=== PATIENT | female | born 1970 | race Caucasian/White ===

== ENCOUNTER 2017-06-26 05:10 | Inpatient (IN) ==
[2017-06-19 17:12] LABS: ALT/SGPT 17 U/l (0-40); Albumin 4.7 gm/dL (3.2-5.2); Albumin/Globulin Ratio 1.4 (1.0-2.3); Alkaline Phosphatase 110 U/L (39-117); Blood Urea Nitrogen 10 mg/dl (6-20)
[2017-06-19 17:17] LABS: Basophils # (Auto) 0.1 K/mcL (0.0-0.3); Basophils % (Auto) 0.6 % (0.0-2.0); Eosinophils # (Auto) 0.3 K/mcL (0.0-0.7); Eosinophils % (Auto) 3.5 % (0.0-7.0); Granulocytes % (Auto) 53.5 % (38.0-78.0); Lymphocytes # (Auto) 3.3 K/mcL (1.5-4.8); Lymphocytes % (Auto) 36.8 % (15.5-49.0); Mean Cell Volume 88.7 fL (80.0-100.0); Mean Corpuscular HGB Conc 34.9 g/dL (31.0-36.0); Monocytes # (Auto) 0.5 K/mcL (0.1-0.9); Monocytes % (Auto) 5.6 % (1.0-12.0); Platelet Count 340 K/mcL (140-440); RBC 4.42 M/mcL (4.00-5.20); Red Cell Distribution Width 12.1 % (11.5-14.5)
[2017-06-19 17:22] LABS: HCG,Serum NEGATIVE <10 (<10 mIU/ml)
[2017-06-19 17:51] LABS: Appearance,Urine CLEAR; Bilirubin,Urine NEG (NEG); Color,Urine STRAW; Glucose,Urine (UA) NEGATIVE (NEG); Leukocyte Esterase,Urine NEG /uL (NEG); Nitrate,Urine NEG (NEG); Protein,Urine NEG (NEG); Specific Gravity,Urine 1.006 (1.000-1.035); Urine Blood NEG mg/dL (<0.03); Urobilinogen,Urine NEG (NEG)
[2017-06-26] MEDS ORDERED: VANCOMYCIN 1,000 MG in 0.9 % SODIUM CHLORIDE 250 ML IV SCH (07:00)
[2017-06-26] MEDS ORDERED: ceFAZolin 1 GM VIAL IV SCH (07:45)
[2017-06-26] MEDS ORDERED: SUCCINYLCHOLINE 20 MG/ML ML IV ONE (07:50)
[2017-06-26] MEDS ORDERED: MIDAZOLAM 2 MG/2 ML VIAL IV ONE (07:50)
[2017-06-26] MEDS ORDERED: PROPOFOL 200 MG/20 ML VIAL IV ONE (07:50)
[2017-06-26] MEDS ORDERED: DEXAMETHASONE 10 MG/ML VIAL IV ONE (07:50)
[2017-06-26] MEDS ORDERED: ONDANSETRON 4 MG/2 ML VIAL IV ONE (07:50)
[2017-06-26] MEDS ORDERED: hydrALAZINE 20 MG/ML VIAL IV ONE (07:50)
[2017-06-26] MEDS ORDERED: HYDROmorphone 2 MG/ML SYRINGE IV ONE (07:50)
[2017-06-26] MEDS ORDERED: LIDOCAINE HCL/PF 100 MG/5 ML SYRINGE IV ONE (07:50)
[2017-06-26] MEDS ORDERED: fentaNYL 250 MCG/5 ML VIAL IV ONE (07:50)
[2017-06-26] MEDS ORDERED: KETAMINE 100 MG/ML ML IV ONE (07:50)
[2017-06-26] MEDS ORDERED: GELATIN SPONGE,ABSORBABLE 1 EACH SPONGE TOPICAL ONE (08:47)
[2017-06-26] MEDS ORDERED: GELATIN SPONGE,ABSORBABLE 1 GM POWDER TOPICAL ONE (08:47)
[2017-06-26] MEDS ORDERED: THROMBIN (BOVINE) 5,000 UNIT VIAL TOPICAL ONE (09:21)
[2017-06-26] MEDS ORDERED: IPRATROPIUM/ALBUTEROL 3 ML AMPUL.NEB NEB PRN (11:42)
[2017-06-26] MEDS ORDERED: METHOCARBAMOL 1,000 MG/10 ML VIAL IV PRN (11:42)
[2017-06-26] MEDS ORDERED: ePHEDrine 50 MG/ML AMPUL IV PRN (11:42)
[2017-06-26] MEDS ORDERED: FLUMAZENIL 0.1 MG/ML ML IV PRN (11:42)
[2017-06-26] MEDS ORDERED: LACTATED RINGERS 250 ML IV PRN (11:42)
[2017-06-26] MEDS ORDERED: MEPERIDINE 50 MG/ML SYRINGE IM PRN (11:42)
[2017-06-26] MEDS ORDERED: BENZOCAINE/MENTHOL 1 LOZENGE PO PRN ×2 (11:42→12:39)
[2017-06-26] MEDS ORDERED: NALOXONE HCL 0.4 MG/ML VIAL IV PRN (11:42)
[2017-06-26] MEDS ORDERED: PROMETHAZINE 25 MG/ML VIAL IV PRN (11:42)
[2017-06-26] MEDS ORDERED: ONDANSETRON 4 MG/2 ML VIAL IV PRN (11:42)
[2017-06-26] MEDS ORDERED: PROMETHAZINE 25 MG/ML VIAL IM PRN (11:42)
[2017-06-26] MEDS ORDERED: diphenhydrAMINE 50 MG/ML VIAL IV PRN (11:42)
[2017-06-26] MEDS ORDERED: LACTATED RINGERS 1,000 ML IV SCH (11:45)
[2017-06-26] MEDS ORDERED: ACETAMINOPHEN 1,000 MG/100 ML BOTTLE IV SCH (12:00)
[2017-06-26] MEDS ORDERED: BUPIVACAINE 0.25% 50 ML VIAL IJ ONE (12:36)
[2017-06-26] MEDS ORDERED: GUM MASTIC/STORAX/MSAL/ALCOHOL 1 DOSE DROPERETTE TOPICAL ONE (12:36)
[2017-06-26] MEDS ORDERED: ONDANSETRON ODT 4 MG TABLET SL PRN (12:39)
--- NOTE | 2017-06-26 12:39 | Brief Operative Note ---
Date of procedure: 06/26/17 Pre-op diagnosis: isthmic spondylolisthesis Post-op diagnosis: same Procedure: decompression and fusion Grafts/Implants: Yes (nuvasive) Anesthesia: GETA Findings: decompressed roots Complications: none Surgeon: Jung Interiano Inner Tube Tuber Machine Operator: Charu Rosa Estimated blood loss (cc): 150 Specimens Removed/Pathology: none sent Condition: stable Disposition: PACU
[2017-06-26] MEDS ORDERED: HYDROmorphone PCA 30 MG/30 ML PCA.VIAL IV PRN (12:47)
[2017-06-26] MEDS: fentaNYL 100 MCG/2 ML VIAL IV PRN ×4 (13:03→13:45)
[2017-06-26] MEDS: MEPERIDINE 25 MG/ML SYRINGE IV PRN ×2 (13:29→13:30)
[2017-06-26] MEDS: HYDROmorphone 2 MG/ML SYRINGE IV PRN ×4 (14:00→14:15)
[2017-06-26] MEDS: 0.9 % SODIUM CHLORIDE 1,000 ML IV SCH ×2 (14:37→23:36)
[2017-06-26] MEDS: ceFAZolin 1 GM VIAL IV SCH ×2 (15:26→23:35)
[2017-06-26] MEDS: METHOCARBAMOL 500 MG TABLET PO PRN (16:18)
[2017-06-26] MEDS: DOCUSATE SODIUM 100 MG CAPSULE PO SCH (21:17)
[2017-06-26] MEDS: traMADol 50 MG TABLET PO PRN (23:54)
[2017-06-27 07:19] LABS: Blood Urea Nitrogen 8 mg/dl (6-20)
[2017-06-27] MEDS: METHOCARBAMOL 500 MG TABLET PO PRN (07:20)
--- NOTE | 2017-06-27 07:52 | Orthopedic Progress Note ---
Subjective Patient information: Note initiated : 06/27/17 at 7:50 am Service Date, if different from initiated Date: [] Patient: Natalie Rich 46 y/o F admitted on 06/26/17 for L4-S1 Lumbar Decompression with Fusion. Chief Complaint: [S/P L5-S1 decompression and fusion] Patient is doing well and states her lower extremity symptoms are improved compared to pre-operatively. Denies any lower extremity weakness/paresthesias. Objective Vital signs: Vital Signs Temp Pulse Resp BP Pulse Ox 06/27/17 07:32 97.1 F 16 111/70 93 06/27/17 04:28 98.5 F 81 16 114/57 92 06/27/17 03:46 18 06/26/17 23:59 97.6 F 82 16 134/72 94 06/26/17 20:00 97.8 F 84 16 123/75 92 06/26/17 18:30 17 06/26/17 16:05 97.9 F 18 135/82 97 06/26/17 15:50 134/68 95 06/26/17 15:35 125/68 94 06/26/17 15:20 97 F 18 138/72 95 06/26/17 14:37 16 06/26/17 14:04 98.3 F 92 H 18 139/84 96 06/26/17 13:40 90 15 139/67 100 06/26/17 13:25 95 H 15 157/74 100 06/26/17 13:10 101 H 21 125/97 100 06/26/17 12:53 98.1 F 77 11 L 112/58 100 Intake and Output 06/26/17 06/27/17 06/27/17 21:59 05:59 13:59 Intake Total 1750 / 1750 1498 / 1498 Output Total 666 / 666 1550 / 1550 Balance 1084 / 1084 -52 / -52 Intake: IV 898 / 898 Sodium Chloride 0.9% 1,000 ml @ 898 / 898 100 mls/hr IV .Q10H AZIZA Rx#: [id number] Oral 1750 / 1750 600 / 600 Output: Drainage 176 / 176 75 / 75 Right ELIZABETH Drain 176 / 176 75 / 75 Void Amount 490 / 490 1475 / 1475 Other: # Voids 1 1 Weight 238 lb 12.8 oz Intake & Output: Intake & Output 06/26/17 06/27/17 06/27/17 21:59 05:59 13:59 Intake Total 1750 / 1750 1498 / 1498 Output Total 666 / 666 1550 / 1550 Balance 1084 / 1084 -52 / -52 Weight 238 lb 12.8 oz Intake: IV 898 / 898 Sodium Chloride 0.9% 1,000 ml @ 898 / 898 100 mls/hr IV .Q10H AZIZA Rx#: [id number] Oral 1750 / 1750 600 / 600 Output: Drainage 176 / 176 75 / 75 Right ELIZABETH Drain 176 / 176 75 / 75 Void Amount 490 / 490 1475 / 1475 Other: # Voids 1 1 Incision: Yes clean and dry Incision clean and dry: Yes Dressing: Yes clean, Yes dry, Yes intact Weight bearing status: as tolerated Neurological exam IM: Yes alert, Yes oriented X3, Yes motor sensory intact, Yes neurovascular intact Extremities exam IM: Yes Foot pink and warm, Yes neurovascular intact - Labs CBC & BMP: 06/27/17 05:26 06/27/17 05:26 Labs: Orthopedic Labs 06/19/17 16:16 PT 13.1 INR 1.0 06/27/17 06/19/17 05:26 16:16 Hgb 10.6 L 13.7 Hct 31.1 L 39.2 Assessment and Plan (1) Lumbar spinal stenosis 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 Have SPORT PT fit patient for aspen Quickdraw lumbar brace. Ambulate with PT. Limit bending, lifting, and twisting. Likely discharge to home tomorrow if pain is well- controlled and she is ambulating well. Status: Acute
--- NOTE | 2017-06-27 08:38 | Operative Note ---
DATE OF OPERATION: 06/26/2017 PREOPERATIVE DIAGNOSIS: Isthmic spondylolisthesis L5-S1 with high-grade foraminal narrowing and radicular pain. POSTOPERATIVE DIAGNOSIS: Isthmic spondylolisthesis L5-S1 with high-grade foraminal narrowing and radicular pain. OPERATION PROPOSED: 1. Lumbar decompression via Adams laminectomy, posterior nonsegmental instrumentation with posterior/posterolateral fusion L5-S1. 2. Application of prosthetic device interbody space and interbody fusion L5-S1. 3. Aspiration of right iliac crest for osteoprogenitor cells. OPERATION PERFORMED: 1. Lumbar decompression via Adams laminectomy, posterior nonsegmental instrumentation with posterior/posterolateral fusion L5-S1. 2. Application of prosthetic device interbody space and interbody fusion L5-S1. 3. Aspiration of right iliac crest for osteoprogenitor cells. OPERATING SURGEON: Jung Interiano MD PAYABLE MANAGER: Charu Rosa PA-C ESTIMATED BLOOD LOSS: 150 mL COMPLICATIONS: None. INDICATIONS: This is a lady with isthmic spondylolisthesis. She has had ongoing back pain and radiculopathy. She has failed conservative measures. We have elected to proceed with lumbar decompression and fusion. OPERATION IN DETAIL: Informed consent was obtained. She was taken to the operating where she was provided with appropriate anesthetic and prophylactic antibiotics. She was carefully positioned. Her back was prepped sterilely. A midline incision was made. I dissected down to expose spinous process and lamina at L5-S1. I dissected out and around the facet joints and exposed the transverse process at L5 and the sacral ala. I then placed a marker and radiograph was obtained to confirm the level of dissection. The laminectomy was done by elevating the spinous process lamina and the inferior articular process of L5. This was elevated through the pars defect. I then debrided osteophytic material off of the L5 pedicle and the remnants of the pars defect. I followed the exiting nerve root to ensure that it was very adequately decompressed. Additional decompression was done as we distracted across the disc space and performed a moderate reduction. I then placed the posterior instrumentation, this being a pedicle screw construct. I identified the appropriate starting position. I passed a gearshift awl cannulating the pedicle. Each pedicle was then probed with a ball-tip whip and then tapped. I reprobed and placed appropriate length pedicle screw at L5 and S1, both on the right and on the left. Radiographs were obtained to confirm the position of the hardware. I then aspirated the iliac crest for osteoprogenitor cells. This was done by advancing a needle into the right iliac crest. The aspirate was applied to our locally harvested bone graft which had been morcellized via bone mill. I then performed the application of prosthetic device interbody space and interbody fusion. This was done by mobilizing the nerve root toward the midline. I incised the annulus. I brought in a variety of dilators and by turning these dilators I was able to distract across the disc space. Distraction was held with a working chari. I then extensively curetted the disc space debriding down to subchondral bone. I packed morcellized bone graft into the disc space to allow for fusion. This was followed by a cage also from Open-Plug which was filled with morcellized bone graft and impacted into the site prepared for it. Posterior and posterolateral fusion was then performed. I extensively decorticated posterolateral aspect of the spine. I packed morcellized bone graft into and against the decorticated posterolateral aspect of the spine to allow perfusion. The procedure was completed by compressing across the interbody graft. I tightened and torqued the chari into the top-loading pedicle screws. I had irrigated thoroughly with pulsatile lavage and IrriSept prior to placing bone graft, closed over a deep drain with 0 Vicryl in interrupted fashion, 2-0 Vicryl inverted deep dermal, and running subcuticular. The procedure was tolerated well. No complications. Estimated blood loss was 150 mL. GDD:vanessa Job ID: [id number] Doc ID: [id number] Jung Interiano MD
[2017-06-27] MEDS: HYDROcodone/APAP 10/325MG TABLET PO PRN ×2 (09:22→20:02)
[2017-06-27] MEDS: DOCUSATE SODIUM 100 MG CAPSULE PO SCH ×2 (09:23→21:56)
[2017-06-27] MEDS: 0.9 % SODIUM CHLORIDE 1,000 ML IV SCH ×2 (09:27→20:05)
[2017-06-27] MEDS ORDERED: FLU VACC QS2017-18 36MOS UP/PF 60 MCG/0.5 ML SYRINGE IM ONE (10:00)
[2017-06-27] MEDS ORDERED: ACETAMINOPHEN 1,000 MG/100 ML BOTTLE IV PRN (14:07)
[2017-06-27] MEDS ORDERED: DIAZEPAM 10 MG/2 ML SYRINGE IV PRN (15:17)
--- NOTE | 2017-06-27 15:26 | General Surgery Progress Note ---
Subjective Patient reports: other (OCASIO) Narrative: Note initiated : 06/27/17 at 3:24 pm Service Date, if different from initiated Date: [] Patient: Natalie Rich 46 y/o F admitted on 06/26/17 for L4-S1 Lumbar Decompression with Fusion. Chief Complaint: [OCASIO] called to eval OCASIO, possible position component POD#1 lumbar decomp franklin and fusion spoke with sx, doubt csf etiology occupational health professional eval earlier, ordered iv ofirmev, going in now, no sx relief no neuro sxs, anxiety episode earlier, resolved spont w reassurance Objective Temp Pulse Resp BP Pulse Ox 97.4 F 81 16 109/65 94 06/27/17 12:06 06/27/17 04:28 06/27/17 09:30 06/27/17 12:06 06/27/17 12:06 - Additional Data Intake & Output - Last 24 hours: Intake & Output 06/25/17 06/26/17 06/27/17 06/28/17 05:59 05:59 05:59 05:59 Intake Total 4648 / 4648 1350 / 1350 Output Total 2966 / 2966 1780 / 1780 Balance 1682 / 1682 -430 / -430 Weight 236 lb 3.2 oz 238 lb 12.8 oz - General physical appearance moderate distress, moderate pain, obese - Eyes PERRL, normal ocular movement - Neck no masses, trachea midline, no lymphadectomy, limited ROM (pain sharply worse with rom, flex>lat bending>rotation. severe palp tender over occ condyles and bilat neck musculature w noted spasm.) - Neurologic normal coordination, normal sensation - Psychiatric oriented to time, oriented to person, oriented to place, speech is normal, memory intact - Labs 06/27/17 05:26 06/27/17 05:26 Diabetes panel 06/27/17 Range/Units 05:26 Sodium 139 (133-145) mmol/L Potassium 3.9 (3.3-5.1) mmol/L Chloride 102 (96-108) mmol/L Carbon Dioxide 24 (22-30) mmol/L BUN 8 (6-20) mg/dl Creatinine 0.9 (0.6-1.1) mg/dl Glucose 127 H (70-105) mg/dL Calcium 7.9 L (8.6-10.4) mg/dl Calcium panel 06/27/17 Range/Units 05:26 Calcium 7.9 L (8.6-10.4) mg/dl Pituitary panel 06/27/17 Range/Units 05:26 Sodium 139 (133-145) mmol/L Potassium 3.9 (3.3-5.1) mmol/L Chloride 102 (96-108) mmol/L Carbon Dioxide 24 (22-30) mmol/L BUN 8 (6-20) mg/dl Creatinine 0.9 (0.6-1.1) mg/dl Glucose 127 H (70-105) mg/dL Calcium 7.9 L (8.6-10.4) mg/dl Adrenal panel 06/27/17 Range/Units 05:26 Sodium 139 (133-145) mmol/L Potassium 3.9 (3.3-5.1) mmol/L Chloride 102 (96-108) mmol/L Carbon Dioxide 24 (22-30) mmol/L BUN 8 (6-20) mg/dl Creatinine 0.9 (0.6-1.1) mg/dl Glucose 127 H (70-105) mg/dL Calcium 7.9 L (8.6-10.4) mg/dl Assessment and Plan - Narrative A/P Narrative: post op headache, tension type Very tender, worse w movement, lack of neuro findings probable secondary to operative positioning of head and neck for extended time will begin fiorcet, valium and d/c ofirmev (apap in fiorcet) discussed injection of local anesthetic, trigger point injections with patient if conservative measures not effective Dr Interiano advised - Time Spent With Patient Total time spent is greater than 50% in coordination of care (as documented) at patient's floor/unit and/or counseling patient: 15 - 24 minutes
[2017-06-27] MEDS: BUTALB/ACETAMINOPHEN/CAFFEINE 1 TABLET PO PRN ×2 (15:58→21:56)
[2017-06-27] MEDS: DIAZEPAM 5 MG TABLET PO PRN (20:02)
[2017-06-28] MEDS: traMADol 50 MG TABLET PO PRN (01:24)
[2017-06-28] MEDS: DIAZEPAM 5 MG TABLET PO PRN (04:30)
[2017-06-28] MEDS: BUTALB/ACETAMINOPHEN/CAFFEINE 1 TABLET PO PRN ×3 (04:30→23:07)
[2017-06-28] MEDS: 0.9 % SODIUM CHLORIDE 1,000 ML IV SCH ×3 (06:35→15:37)
[2017-06-28] MEDS: HYDROcodone/APAP 10/325MG TABLET PO PRN ×2 (08:57→18:59)
[2017-06-28] MEDS: DOCUSATE SODIUM 100 MG CAPSULE PO SCH ×2 (08:57→23:07)
[2017-06-28] MEDS: METHOCARBAMOL 750 MG TABLET PO PRN ×2 (13:53→23:07)
--- NOTE | 2017-06-28 18:22 | Discharge Summary ---
Providers - Providers Patient information: Note initiated : 06/28/17 at 6:20 pm Service Date, if different from initiated Date: [] Patient: Natalie Rich 46 y/o F admitted on 06/26/17 for L4-S1 Lumbar Decompression with Fusion. Chief Complaint: [ back and radiculopathy, isthmic spondylo] Date of admission: 06/26/17 Discharge date: 06/29/17 Attending physician: Jung Interiano Hospitalization Hospital course: headaches but otherwise uneventful post surgical course Discharge diagnosis: isthmich spondylolisthesis L5S1 Secondary discharge diagnosis: none Reason for admission: fusion Procedures: decompression and fusion L5S1 Complications: none Exam - Exam Incision healing: Yes Weight bearing status: full Ortho Discharge - Spine - Patient Instructions Discharge Diet: Regular Diet Activity: activity as tolerated Spine Protocol: Limit bending and stooping. No heavy lifting. Wear brace/collar at all times except when showering and sleeping. Dressing Care: May shower in 2 days Additional Dressing Instructions: May Shower 48 hours post-operative and replace with dry dressing after shower. Patient Education: Lumbar Spinal Fusion (DC) - Follow Up Plan Follow Up Appointments: Jung Interiano MD [Physician] - 07/11/17 1:40 pm Disposition: Home, Self-Care Prognosis: Good Rehab Potential: Good I certify that the patient requires SNF services: No - Orders For Discharge Prescriptions: HYDROcodone/APAP 10/325MG [Pyatt 10/325Mg] 1 - 2 tab PO Q4-6HP PRN #50 tab PRN Reason: Pain Methocarbamol [Robaxin] 750 mg PO Q6HP PRN #30 tab PRN Reason: Muscle Spasm traMADol [Ultram] 50 mg PO BIDP PRN #50 tab PRN Reason: Pain Pending Studies Resuscitation Status Full Code Diet Consistent Carbohydrate Diet Start Mon 6 Dinner Acetaminophen/Butalbital/Caffeine (Fioricet) 2 tab PO Q6HP PRN PRN Reason: Headache Last Admin: 06/28/17 14:11 Dose: 2 tab Admin: 06/28/17 04:30 Dose: 2 tab Admin: 06/27/17 21:56 Dose: 2 tab Admin: 06/27/17 15:58 Dose: 2 tab Hydrocodone Bitart/Acetaminophen (Pyatt 10/325mg) 1 - 2 tab PO Q4-6HP PRN PRN Reason: Pain Last Admin: 06/28/17 08:57 Dose: 2 tab Admin: 06/27/17 20:02 Dose: 2 tab Admin: 06/27/17 09:22 Dose: 2 tab Diazepam (Valium) 5 mg PO TIDP PRN PRN Reason: Muscle Spasm Last Admin: 06/28/17 04:30 Dose: 5 mg Admin: 06/27/17 20:02 Dose: 5 mg Docusate Sodium (Colace) 100 mg PO BID AZIZA Last Admin: 06/28/17 08:57 Dose: 100 mg Admin: 06/27/17 21:56 Dose: 100 mg Admin: 06/27/17 09:23 Dose: 100 mg Admin: 06/26/17 21:17 Dose: 100 mg Sodium Chloride (Sodium Chloride 0.9%) 1,000 mls @ 100 mls/hr IV .Q10H AZIZA Last Admin: 06/28/17 15:37 Dose: Infusion: 06/28/17 09:15 Dose: 0 mls/hr Admin: 06/28/17 07:20 Dose: 100 mls/hr Admin: 06/28/17 06:35 Dose: Not Given Infusion: 06/28/17 06:05 Dose: 100 mls/hr Admin: 06/27/17 20:05 Dose: 100 mls/hr Infusion: 06/27/17 19:27 Dose: 100 mls/hr Admin: 06/27/17 09:27 Dose: 100 mls/hr Infusion: 06/27/17 09:27 Dose: 0 mls/hr Admin: 06/26/17 23:36 Dose: 100 mls/hr Infusion: 06/26/17 23:36 Dose: 100 mls/hr Admin: 06/26/17 14:37 Dose: 100 mls/hr Methocarbamol (Robaxin) 750 mg PO Q6HP PRN PRN Reason: Muscle Spasm Last Admin: 06/28/17 13:53 Dose: 750 mg Tramadol HCl (Ultram) 50 mg PO BIDP PRN PRN Reason: Pain Last Admin: 06/28/17 01:24 Dose: 50 mg Admin: 06/26/17 23:54 Dose: 50 mg Shift Summary 06/28/17 15:39 Shift Summary by Jen Ramos Has been up ambulating several times in [place] with spouse and with [place] brace on.Still having occ.head aches and has been medicated 2 times with the Fioricet with good relief,has received Pyatt 2 tabs once this am.Anaesthesia thinks the head and neck pain are from the prolonged position she in during her surgery and it will go away.Also ice packs are helping.ELIZABETH drain pulled this morning and dry dressing applied to incision.Should discharge in am. Initialized on 06/28/17 15:39 - END OF NOTE
--- NOTE | 2017-06-28 18:31 | Orthopedic Progress Note ---
Subjective Patient information: Note initiated : 06/28/17 at 6:29 pm Service Date, if different from initiated Date: [] Patient: Natalie Rich 46 y/o F admitted on 06/26/17 for L4-S1 Lumbar Decompression with Fusion. Chief Complaint: []headache earlier in day Principal diagnosis: isthmic spondy Objective Vital signs: Vital Signs Temp Pulse Resp BP Pulse Ox 06/28/17 17:23 98.3 F 130/75 95 06/28/17 12:21 98.3 F 77 16 129/78 95 06/28/17 08:02 98.1 F 16 126/79 95 06/28/17 04:00 99.0 F H 81 16 129/55 90 06/27/17 23:19 98.9 F 84 16 115/65 90 06/27/17 18:38 98.1 F 73 16 115/64 93 Intake and Output 06/28/17 06/28/17 06/28/17 05:59 13:59 21:59 Intake Total 350 / 350 1372 / 1372 Output Total 1060 / 1060 230 / 230 2500 / 2500 Balance -710 / -710 1142 / 1142 -2500 / -2500 Intake: IV 1192 / 1192 Sodium Chloride 0.9% 1,000 ml @ 1192 / 1192 100 mls/hr IV .Q10H AZIZA Rx#: [id number] Oral 350 / 350 180 / 180 Output: Drainage 10 / 10 30 / 30 Right ELIZABETH Drain 10 30 / 30 Void Amount 1050 / 1050 200 / 200 2500 / 2500 Other: Meal Breakfast Lunch Percent of Meal Consumed 100% 100% Feeding Ability Independent # Voids 1 Intake & Output: Intake & Output 06/28/17 06/28/17 06/28/17 05:59 13:59 21:59 Intake Total 350 / 350 1372 / 1372 Output Total 1060 / 1060 230 / 230 2500 / 2500 Balance -710 / -710 1142 / 1142 -2500 / -2500 Intake: IV 1192 / 1192 Sodium Chloride 0.9% 1,000 ml @ 1192 / 1192 100 mls/hr IV .Q10H AZIZA Rx#: [id number] Oral 350 / 350 180 / 180 Output: Drainage 10 / 10 30 / 30 Right ELIZABETH Drain 10 / 10 30 / 30 Void Amount 1050 / 1050 200 / 200 2500 / 2500 Other: Meal Breakfast Lunch Percent of Meal Consumed 100% 100% Feeding Ability Independent # Voids 1 Incision: Yes clean and dry Neurological exam IM: Yes neurovascular intact Extremities exam IM: Yes neurovascular intact - Labs CBC & BMP: 06/28/17 04:42 06/27/17 05:26 Labs: Orthopedic Labs 06/19/17 16:16 PT 13.1 INR 1.0 06/28/17 06/27/17 06/19/17 04:42 05:26 16:16 Hgb 9.8 L 10.6 L 13.7 Hct 29.2 L 31.1 L 39.2
[2017-06-29] MEDS: 0.9 % SODIUM CHLORIDE 1,000 ML IV SCH (01:01)
[2017-06-29] MEDS: HYDROcodone/APAP 10/325MG TABLET PO PRN ×2 (07:30→11:35)
[2017-06-29] MEDS: DOCUSATE SODIUM 100 MG CAPSULE PO SCH (07:50)
[2017-06-29] MEDS ORDERED: FLU VACC QS2017-18 36MOS UP/PF 60 MCG/0.5 ML SYRINGE IM ONE (11:30)
== END 2017-06-29 11:50 | disposition home or self-care (01) | DRG 517 ==
LOC: MEDSUR 05:10
PROVIDERS: ADMIT Orthopaedic Surgery Orthopaedic Surgery of the Spine; ATTEND Orthopaedic Surgery Orthopaedic Surgery of the Spine
PROC: LUMDECF (ICD-10-PCS; 2017-06-26 07:46)